=== PATIENT | female | born 1995 | race Caucasian/White ===

== ENCOUNTER 2024-05-30 08:54 | Day surgery (SDC) | payer OTHER ==
[~2024-05-30] VITALS: Ht 170.2 cm; Wt 66.8 kg
[~2024-05-30 08:54] MED LIST: LEVO2TA PO; propofoL 500 MG/50 ML VIAL As Ordered ONE
[2024-05-30] MEDS ORDERED: propofoL 200 MG/20 ML VIAL As Ordered ONE (10:34)
[2024-05-30] MEDS ORDERED: LIDOCAINE 2% 100MG/5ML SDV (FOR ANES.) As Ordered ONE (10:34)
[2024-05-30 10:43] VITALS: TEMP 98.7
[2024-05-30 11:03] VITALS: BP 105/50; O2SAT 100
== END 2024-05-30 11:11 | disposition home or self-care (01) ==
LOC: M OPP 08:54
PROVIDERS: ATTEND Surgery
DX: R19.7 Diarrhea, unspecified (principal); R23.3 Spontaneous ecchymoses; R11.2 Nausea with vomiting, unspecified; K22.89 Other specified disease of esophagus; Z79.899 Other long term (current) drug therapy

== ENCOUNTER → 2024-09-14 | Outpatient (CLI) | payer OTHER ==
[~2024-09-14] MED LIST changes: +ISOVUE-370 76% 100ML VIAL As Ordered ONE; -propofoL 500 MG/50 ML VIAL As Ordered ONE
== END ==
LOC: M RAD 16:37
PROVIDERS: ATTEND Physician Assistant
DX: R11.2 Nausea with vomiting, unspecified (principal); R63.4 Abnormal weight loss
CPT/HCPCS: 74178; Q9967

== ENCOUNTER → 2024-09-21 | Outpatient (CLI) | payer OTHER ==
[~2024-09-21] MED LIST changes: -ISOVUE-370 76% 100ML VIAL As Ordered ONE
== END ==
LOC: M PLARAD 10:28
PROVIDERS: ATTEND Orthopaedic Surgery
DX: M87.051 Idiopathic aseptic necrosis of right femur (principal)